=== PATIENT | male | born 1990 | race Caucasian/White ===

== ENCOUNTER 2019-01-20 19:35 | Emergency (ER) | payer SELFPAY ==
--- NOTE | 2019-01-20 19:40 | ERPHSYRPT ---
- History of Present Illness Time Seen by Provider: 01/20/19 19:39 Historian: patient, family Exam Limitations: no limitations Physician History: 28 y/o white male with h/o chronic lbp on hydrocodone presents with sudden onset of nonradiating, localized right lower quad abd pain. occurred approx 2 hours lpta. pain has actually improved but still present. no n/v/d. no fever. no prior abd surgeries. Timing/Duration: today (2 hours ago), hour(s) (2), sudden Quality: sharpness, stabbing Abdominal Pain Onset Location: RLQ Pain Radiation: no radiation Severity of Pain-Max: moderate Severity of Pain-Current: mild Modifying Factors: Improves With: nothing Associated Symptoms: denies symptoms Previous symptoms: no prior history Allergies/Adverse Reactions: No Known Drug Allergies Allergy (Verified 01/20/19 19:56) Home Medications: Amphet Asp/Amphet/D-Amphet [Dextroamp-Amphet ER 30 mg Cap] 30 mg PO DAILY [History] Cyclobenzaprine HCl [Flexeril] 10 mg PO BID PRN 01/20/19 [History] Hydrocodone Bit/Acetaminophen [[place] 7.5-325 Tablet] 1 each PO BID PRN 01/20/19 [History] - Review of Systems Constitutional: No Symptoms Eyes: No Symptoms Ears, Nose, & Throat: No Symptoms Respiratory: No Symptoms Cardiac: No Symptoms Abdominal/Gastrointestinal: Abdominal Pain, No Nausea, No Vomiting, No Diarrhea Genitourinary Symptoms: No Symptoms Musculoskeletal: No Symptoms Skin: No Symptoms Neurological: No Symptoms Psychological: No Symptoms Endocrine: No Symptoms Hematologic/Lymphatic: No Symptoms Immunological/Allergic: No Symptoms All Other Systems: Reviewed and Negative - Past Medical History Neurological History: No Pertinent History ENT History: No Pertinent History Cardiac History: No Pertinent History Respiratory History: No Pertinent History Endocrine Medical History: No Pertinent History Musculoskeletal History: No Pertinent History GI Medical History: No Pertinent History History: No Pertinent History Psycho-Social History: No Pertinent History Male Reproductive Disorders: No Pertinent History - Past Surgical History Past Surgical History: No Neuro Surgical History: No Pertinent History Cardiac: No Pertinent History Respiratory: No Pertinent History Gastrointestinal: No Pertinent History Genitourinary: No Pertinent History Musculoskeletal: No Pertinent History Male Surgical History: No Pertinent History - Nursing Vital Signs Nursing Vital Signs: Initial Vital Signs Temperature 97.8 F 01/20/19 19:42 Pulse Rate 94 H 01/20/19 19:42 Respiratory Rate 16 01/20/19 19:42 Blood Pressure 157/88 01/20/19 19:42 O2 Sat by Pulse Oximetry 99 01/20/19 19:42 Pain Scale Pain Intensity 6 - Physical Exam General Appearance: mild distress, alert, anxiety Eye Exam: PERRL/EOMI, eyes nml inspection Ears, Nose, Throat Exam: normal ENT inspection, moist mucous membranes Neck Exam: normal inspection, non-tender, supple, full range of motion Respiratory Exam: normal breath sounds, lungs clear, airway intact, No chest tenderness, No respiratory distress Cardiovascular Exam: regular rate/rhythm, normal heart sounds, normal peripheral pulses Gastrointestinal/Abdomen Exam: soft, normal bowel sounds, tenderness (localized at right lower quad), guarding, No rebound Rectal Exam: not done Back Exam: normal inspection, normal range of motion, No CVA tenderness, No vertebral tenderness Extremity Exam: normal inspection, normal range of motion, pelvis stable Neurologic Exam: alert, oriented x 3, cooperative, 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 II-XII nml as tested Skin Exam: normal color, warm, dry Lymphatic Exam: No adenopathy SpO2 Interpretation: normal O2 Delivery: Room Air Ordered Tests: Active Orders 24 hr Category Date Time Status IV Insertion STAT Care 01/20/19 20:04 Active ABDOMEN AND PELVIS W/0 CONTRAS [CT] Stat Exams 01/20/19 20:05 Taken AMYLASE Stat Lab 01/20/19 20:00 Completed CBC W DIFF Stat Lab 01/20/19 20:00 Completed CMP Stat Lab 01/20/19 20:00 Completed LIPASE Stat Lab 01/20/19 20:00 Completed Lactic Acid Stat Lab 01/20/19 20:04 Completed UA W/RFX UR CULTURE Stat Lab 01/20/19 20:11 Completed Medication Summary Generic Name Dose Route Start Last Admin Trade Name Freq PRN Reason Stop Dose Admin Sodium Chloride 1,000 mls @ 999 mls/hr 01/20/19 20:04 01/20/19 20:23 Sodium Chloride 0.9% 1000 Ml IV 01/20/19 21:04 999 mls/hr .Q1H1M STA Administration Ketorolac Tromethamine 30 mg 01/20/19 20:56 Toradol 30 Mg Injection IV 01/20/19 20:57 STAT ONE Discontinued Medications Generic Name Dose Route Start Last Admin Trade Name Lalita PRN Reason Stop Dose Admin Hydromorphone HCl 0.5 mg 01/20/19 20:04 01/20/19 20:24 Hydromorphone 1 Mg/Ml Ampule IV 01/20/19 20:05 0.5 mg STAT ONE Administration Hydromorphone HCl Confirm 01/20/19 20:16 Hydromorphone 1 Mg/Ml Ampule Administered 01/20/19 20:17 Dose 1 mg .ROUTE .STK-MED ONE Sodium Chloride Confirm 01/20/19 20:16 Sodium Chloride 0.9% 1000 Ml Administered 01/20/19 20:17 Dose 1,000 mls @ ud .ROUTE .STK-MED ONE Ondansetron HCl 4 mg 01/20/19 20:04 01/20/19 20:24 Zofran 4 Mg/2 Ml Vial IV 01/20/19 20:05 4 mg STAT ONE Administration Ondansetron HCl Confirm 01/20/19 20:15 Zofran 4 Mg/2 Ml Vial Administered 01/20/19 20:16 Dose 4 mg .ROUTE .STK-MED ONE Lab/Rad Data: Laboratory Result Diagrams 01/20/19 20:00 01/20/19 20:00 Laboratory Results 01/20/19 01/20/19 01/20/19 Range/Units 20:11 20:04 20:00 WBC (4.0-10.5) K/mm3 RBC (4.1-5.6) M/mm3 Hgb (12.5-18.0) gm/dl Hct (42-50) % MCV (78-100) fl MCH (26-32) pg MCHC (32-36) g/dl RDW (11.5-14.0) % Plt Count (150-450) K/mm3 MPV (6-9.5) fl Gran % (36.0-66.0) % Eos # (Auto) (0-0.5) Absolute Lymphs (auto) (1.0-4.6) Absolute Monos (auto) (0.0-1.3) Lymphocytes % (24.0-44.0) % Monocytes % (0.0-12.0) % Eosinophils % (0.00-5.0) % Basophils % (0.0-0.4) % Absolute Granulocytes (1.4-6.9) Basophils # (0-0.4) Sodium 143 (137-145) mmol/L Potassium 4.3 (3.5-5.1) mmol/L Chloride 103 (98-107) mmol/L Carbon Dioxide 31 H (22-30) mmol/L Anion Gap 13.2 (5-15) MEQ/L BUN 12 (9-20) mg/dL Creatinine 0.83 (0.66-1.25) mg/dL Estimated GFR > 60.0 ML/MIN Glucose 90 (74-106) mg/dL Lactic Acid 1.6 (0.4-2.0) Calcium 10.1 (8.4-10.2) mg/dL Total Bilirubin 0.50 (0.2-1.3) mg/dL AST 28 (17-59) U/L ALT 19 (0-50) U/L Alkaline Phosphatase 66 (38-126) U/L Serum Total Protein 8.4 H (6.3-8.2) g/dL Albumin 4.9 (3.5-5.0) g/dL Amylase 97 (30-110) U/L Lipase 65 (23-300) U/L Urine Color YELLOW (YELLOW) Urine Appearance CLOUDY (CLEAR) Urine pH 6.0 (5-6) Ur Specific [place] 1.025 (1.005-1.025) Urine Protein 30 (Negative) Urine Ketones NEGATIVE (NEGATIVE) Urine Blood LARGE (0-5) Vladimir/ul Urine Nitrite NEGATIVE (NEGATIVE) Urine Bilirubin NEGATIVE (NEGATIVE) Urine Urobilinogen NEGATIVE (0-1) mg/dL Ur Leukocyte Esterase NEGATIVE (NEGATIVE) Urine WBC (Auto) NONE (0-5) /HPF Urine RBC (Auto) >101 (0-2) /HPF U Epithel Cells (Auto) NONE (FEW) /HPF Urine Bacteria (Auto) NONE (NEGATIVE) /HPF Urine Mucus (Auto) SLIGHT (NEGATIVE) /HPF Urine Culture Reflexed NO (NO) Urine Glucose NEGATIVE (NEGATIVE) mg/dL 01/20/19 Range/Units 20:00 WBC 8.5 (4.0-10.5) K/mm3 RBC 5.18 (4.1-5.6) M/mm3 Hgb 15.8 (12.5-18.0) gm/dl Hct 46.7 (42-50) % MCV 90.2 (78-100) fl MCH 30.5 (26-32) pg MCHC 33.8 (32-36) g/dl RDW 12.8 (11.5-14.0) % Plt Count 289 (150-450) K/mm3 MPV 9.4 (6-9.5) fl Gran % 56.2 (36.0-66.0) % Eos # (Auto) 0.24 (0-0.5) Absolute Lymphs (auto) 2.60 (1.0-4.6) Absolute Monos (auto) 0.86 (0.0-1.3) Lymphocytes % 30.5 (24.0-44.0) % Monocytes % 10.1 (0.0-12.0) % Eosinophils % 2.8 (0.00-5.0) % Basophils % 0.4 (0.0-0.4) % Absolute Granulocytes 4.79 (1.4-6.9) Basophils # 0.03 (0-0.4) Sodium (137-145) mmol/L Potassium (3.5-5.1) mmol/L Chloride (98-107) mmol/L Carbon Dioxide (22-30) mmol/L Anion Gap (5-15) MEQ/L BUN (9-20) mg/dL Creatinine (0.66-1.25) mg/dL Estimated GFR ML/MIN Glucose (74-106) mg/dL Lactic Acid (0.4-2.0) Calcium (8.4-10.2) mg/dL Total Bilirubin (0.2-1.3) mg/dL AST (17-59) U/L ALT (0-50) U/L Alkaline Phosphatase (38-126) U/L Serum Total Protein (6.3-8.2) g/dL Albumin (3.5-5.0) g/dL Amylase (30-110) U/L Lipase (23-300) U/L Urine Color (YELLOW) Urine Appearance (CLEAR) Urine pH (5-6) Ur Specific [place] (1.005-1.025) Urine Protein (Negative) Urine Ketones (NEGATIVE) Urine Blood (0-5) Vladimir/ul Urine Nitrite (NEGATIVE) Urine Bilirubin (NEGATIVE) Urine Urobilinogen (0-1) mg/dL Ur Leukocyte Esterase (NEGATIVE) Urine WBC (Auto) (0-5) /HPF Urine RBC (Auto) (0-2) /HPF U Epithel Cells (Auto) (FEW) /HPF Urine Bacteria (Auto) (NEGATIVE) /HPF Urine Mucus (Auto) (NEGATIVE) /HPF Urine Culture Reflexed (NO) Urine Glucose (NEGATIVE) mg/dL - Progress Progress: improved, pain not gone completely Progress Note: 01/20/19 20:57 ct ab/pelvis-3 to 4mm prox right ureteral calculus with mild hydronephrosis. nl appendix. Counseled pt/family regarding: lab results, diagnosis, need for follow-up - Departure Departure Disposition: Home Clinical Impression: Right ureteral calculus Condition: Stable Critical Care Time: No Referrals: GIOVANNI MARROQUIN MD [ACTIVE STAFF] - Additional Instructions: drink plenty of fluids. add ibuprofen 600mg orally 3 times daily with food for pain. call Dr. Mabry, urologist in [place], tomorrow morning at [phone] for further management. Prescriptions: Hydrocodone Bit/Acetaminophen [Hydrocodon-Acetaminoph 7.5-325] 1 each PO Q8H PRN PRN #6 tablet MDD 3 PRN Reason: Moderate Pain
[2019-01-20] MEDS ORDERED: Zofran 4 MG/2 ML VIAL IV ONE (20:04)
[2019-01-20] MEDS ORDERED: Sodium Chloride 0.9% 1000 ML 1,000 ML IV STA (20:04)
[2019-01-20] MEDS ORDERED: Hydromorphone 1 mg/ml Ampule IV ONE (20:04)
[2019-01-20] MEDS ORDERED: Zofran 4 MG/2 ML VIAL ONE (20:15)
[2019-01-20] MEDS ORDERED: Sodium Chloride 0.9% 1000 ML 1,000 ML ONE (20:16)
[2019-01-20] MEDS ORDERED: Hydromorphone 1 mg/ml Ampule ONE (20:16)
[2019-01-20 20:25] LABS: ALBUMIN 4.9 g/dL (3.5-5.0); ALKALINE PHOSPHATASE 66 U/L (38-126); AMYLASE 97 U/L (30-110); ANION GAP 13.2 MEQ/L (5-15); BLOOD UREA NITROGEN 12 mg/dL (9-20); CHLORIDE 103 mmol/L (98-107); Calcium 10.1 mg/dL (8.4-10.2); Carbon Dioxide 31 mmol/L (22-30); Creatinine 1 0.83 mg/dL (0.66-1.25); Glucose 90 mg/dL (74-106); LIPASE 65 U/L (23-300); Potassium 4.3 mmol/L (3.5-5.1); SGOT/AST 28 U/L (17-59); SGPT/ALT 19 U/L (0-50); SODIUM 143 mmol/L (137-145); Total Protein 8.4 g/dL (6.3-8.2)
[2019-01-20 20:26] LABS: Absolute Neutrophil Ct (ANC) 4.79 (1.4-6.9); BASOPHIL % 0.4 % (0.0-0.4); Basophil (Absolute #) 0.03 (0-0.4); Eosinophil % 2.8 % (0.00-5.0); Eosinophil (Absolute #) 0.24 (0-0.5); Hematocrit 46.7 % (42-50); Hemoglobin 15.8 gm/dl (12.5-18.0); Lymphocytes % 30.5 % (24.0-44.0); Mean Cell Volume 90.2 fl (78-100); Mean Corpuscular Hemoglobin 30.5 pg (26-32); Mean Corpuscular Hgb Concent. 33.8 g/dl (32-36); Mean Platelet Volume 9.4 fl (6-9.5); Monocyte (Absolute #) 0.86 (0.0-1.3); Monocytes % 10.1 % (0.0-12.0); Neutrophil % 56.2 % (36.0-66.0); Platelet Count 289 K/mm3 (150-450); Red Blood Count 5.18 M/mm3 (4.1-5.6); Red Cell Distribution Width 12.8 % (11.5-14.0); White Blood Count 8.5 K/mm3 (4.0-10.5)
[2019-01-20 20:34] LABS: Appearance CLOUDY (CLEAR); Bilirubin NEGATIVE (NEGATIVE); Blood LARGE Ery/ul (0-5); Glucose NEGATIVE (NEGATIVE); Ketones NEGATIVE (NEGATIVE); Leukocyte Esterase NEGATIVE (NEGATIVE); Mucus SLIGHT /HPF (NEGATIVE); Nitrite NEGATIVE (NEGATIVE); Protein,Urine Dip 30 (Negative); RBC >101 /HPF (0-2); Specific Gravity 1.025 (1.005-1.025); Urobilinogen NEGATIVE mg/dL (0-1)
[2019-01-20] MEDS ORDERED: TORAdol 30 mg Injection IV ONE (20:56)
[2019-01-20] MEDS ORDERED: TORAdol 30 mg Injection ONE (20:59)
[2019-01-20 21:41] VITALS: BP 127/80; PULSE 83; O2SAT 98
--- NOTE | 2019-01-21 09:02 | XRAY ---
Indication: Right lower quadrant pain. Nausea and vomiting. Multiple contiguous axial images obtained through the abdomen and pelvis without contrast as ordered. Comparison: None. Lung bases are clear. Heart is not enlarged. Noncontrasted stomach and bowel loops appear nonobstructed. Normal appendix. No free fluid/air. There is a 3-4 mm proximal right ureter calculus, approximately L3 level. Mild right hydronephrosis consistent with partial obstructive uropathy. Remaining liver, gallbladder, pancreas, spleen, adrenal glands, left kidney, left ureter, bladder, and aorta appear unremarkable for noncontrast exam. Osseous structures intact with minimal degenerative changes throughout the thoracolumbar spine. Impression: 1. 3-4 mm right ureteral calculus producing partial obstruction as detailed. 2. Remaining CT abdomen/pelvis without contrast exam is negative. CTDI 7.86
== END 2019-01-20 21:41 | disposition home or self-care (01) ==
LOC: ED 19:35
DX: N13.2 Hydronephrosis with renal and ureteral calculous obstruction (principal); M54.5 Low back pain; Z79.891 Long term (current) use of opiate analgesic; Z79.899 Other long term (current) drug therapy; R10.31 Right lower quadrant pain
CPT/HCPCS: 36000; 36415; 74176; 80053; 81001; 82150; 83605; 83690; 85025; 96374; 96375; 99284; J1170; J1885; J2405